=== PATIENT | male | born 1945 | race Caucasian/White ===

== ENCOUNTER 2016-07-10 19:27 | Emergency (ER) | payer OTHER ==
[~2016-07-10] VITALS: Ht 177.8 cm; Wt 89.8 kg
[2016-07-10 19:27] VITALS: BP_SYST 152
[2016-07-10] MEDS ORDERED: TEST75GE TP (19:53)
[2016-07-10] MEDS ORDERED: ALPR2TAB2 PO (19:53)
[2016-07-10] MEDS ORDERED: ROSU10TA PO (19:53)
[2016-07-10] MEDS ORDERED: LOSA25TA3 PO (19:53)
[2016-07-10] MEDS ORDERED: LIP10 PO (19:53)
[2016-07-10] MEDS ORDERED: DIPH-TET-PERTUS Vaccine 0.5 ML VIAL (ADACEL) I.M. ONE (20:00)
[2016-07-10] MEDS ORDERED: TETANUS IMMUNE GLOBULIN/PF 250 UNITS/SYR (HYPERTET) I.M. ONE (20:00)
[2016-07-10 20:03] LABS: BASOPHILS % (AUTO) 0.7 % (0.0-2.0); EOSINOPHILS # (AUTO) 0.3 K/uL (0.0-0.4); EOSINOPHILS % (AUTO) 3.9 % (0.0-4.0); HEMATOCRIT 39.6 % (36-54); HEMOGLOBIN 13.5 g/dL (14.0-18.0); LYMPHOCYTES # (AUTO) 2.2 K/uL (1.0-5.5); LYMPHOCYTES % (AUTO) 34.5 % (20.5-51.5); MEAN CORPUSCULAR HEMOGLOBIN 32 pg (27-31); MEAN CORPUSCULAR HGB CONC 34 % (32-36); MEAN CORPUSCULAR VOLUME 93 fL (79.0-98.0); MONOCYTES # (AUTO) 0.5 K/uL (0.0-1.0); MONOCYTES % (AUTO) 7.8 % (1.7-9.3); NEUTROPHILS # (AUTO) 3.4 K/uL (1.8-7.7); NEUTROPHILS % (AUTO) 53.1 % (40.0-70.0); PLATELET COUNT (AUTO) 171 K/uL (130-430); RED BLOOD CELL COUNT(AUTO) 4.27 MIL/uL (4.2-6.2); RED CELL DISTRIBUTION WIDTH 12.6 % (9.0-15.0); WHITE BLOOD COUNT (AUTO) 6.4 K/uL (4.8-10.8)
[2016-07-10 20:07] LABS: CREATININE 0.96 mg/dL (0.55-1.30); POTASSIUM 3.6 mmol/L (3.5-5.1)
[2016-07-10 20:09] LABS: PROTHROMBIN TIME 10.7 SECS (9.5-12.5)
[2016-07-10 20:12] LABS: TOTAL BILIRUBIN 0.5 mg/dL (0.0-1.0); TOTAL PROTEIN, SERUM 7.1 g/dL (6.4-8.3)
[2016-07-10] MEDS ORDERED: DIPH-TET Vacc 0.5 ML VIAL I.M. ONE (20:15)
[2016-07-10] MEDS ORDERED: LIDOCAINE/EPI 2% 1:100000 20 ML VIAL INJ ONE (20:45)
[2016-07-10] MEDS ORDERED: HYDROmorphone 2 MG/ML VIAL IVP ONE (21:00)
[2016-07-10] MEDS ORDERED: NACL 0.9% 1,000 ML IV ONE (21:30)
[2016-07-10] MEDS ORDERED: cefTRIAXone 0.75 GM in D5W 50 ML IV ONE (21:30)
[2016-07-10 21:31] LABS: BASOPHILS # (AUTO) 0.1 K/uL (0.0-0.2); BASOPHILS % (AUTO) 0.7 % (0.0-2.0); EOSINOPHILS # (AUTO) 0.4 K/uL (0.0-0.4); HEMATOCRIT 38.2 % (36-54); HEMOGLOBIN 13.2 g/dL (14.0-18.0); LYMPHOCYTES # (AUTO) 4.2 K/uL (1.0-5.5); LYMPHOCYTES % (AUTO) 46.7 % (20.5-51.5); MEAN CORPUSCULAR HEMOGLOBIN 32 pg (27-31); MEAN CORPUSCULAR HGB CONC 35 % (32-36); MEAN CORPUSCULAR VOLUME 93 fL (79.0-98.0); MONOCYTES # (AUTO) 0.7 K/uL (0.0-1.0); MONOCYTES % (AUTO) 7.6 % (1.7-9.3); NEUTROPHILS # (AUTO) 3.8 K/uL (1.8-7.7); PLATELET COUNT (AUTO) 180 K/uL (130-430); RED BLOOD CELL COUNT(AUTO) 4.12 MIL/uL (4.2-6.2); RED CELL DISTRIBUTION WIDTH 12.3 % (9.0-15.0)
[2016-07-10 21:33] LABS: WHITE BLOOD COUNT (AUTO) 9.2 K/uL (4.8-10.8)
[2016-07-10] MEDS ORDERED: cefTRIAXone 1 GM VIAL ONE (21:52)
[2016-07-10] MEDS ORDERED: ONDANSETRON 4 MG ODT TAB PO ONE (22:30)
[2016-07-10] MEDS ORDERED: ONDANSETRON HCL 4 MG/2 ML VIAL IVP ONE (23:00)
[2016-07-10 23:20] VITALS: BP_SYST 136
== END 2016-07-10 23:20 | disposition home or self-care (01) ==
LOC: SED 19:27
DX: S51.812A Laceration without foreign body of left forearm, initial encounter (principal); I10 Essential (primary) hypertension; W22.8XXA Striking against or struck by other objects, initial encounter; Y93.89 Activity, other specified; Y92.89 Other specified places as the place of occurrence of the external cause; Y99.8 Other external cause status
CPT/HCPCS: 12032; 36415; 73090; 80053; 85025; 85610; 90471; 90714; 96361; 96374; 96375; 99285; J0696; J1170; J2405; J7030; J7060; Q0162